=== PATIENT | male | born 1950 | race Caucasian/White ===

== ENCOUNTER 2017-09-18 03:07 | Emergency (ER) | payer OTHER ==
[2017-09-18] MEDS ORDERED: hydrOXYzine HCL TAB* 25 MG PO ONE (03:29)
[2017-09-18] MEDS ORDERED: Famotidine TAB* 20 MG PO ONE (03:30)
[2017-09-18] MEDS ORDERED: predniSONE TAB* 20 MG PO ONE (03:31)
--- NOTE | 2017-09-18 04:35 | ED ---
Ct Lynch SooYoung, scribed for Day Phillips MD on 09/18/17 at 0327 . Skin Complaint - HPI Summary HPI Summary: A 67 y/o M presents to ED with c/o diffuse rash first noticed approx. 1800 yesterday. Rash is pruritic and erythematous. Pt has been recently hunting. Pt denies new exposure to clothes, soaps, foods. PMHx: HTN, shingles. - History of Current Complaint Chief Complaint: EDRashSkinAbscess Time Seen by Provider: 09/18/17 03:21 Stated Complaint: RASH Hx Obtained From: Patient, Medical Records Onset/Duration: Started Hours Ago, Still Present Timing: Constant Onset Severity: Mild Current Severity: Mild Pain Intensity: 0 Pain Scale Used: 0-10 Numeric Skin Location: Diffuse Character: Pruritus, Redness - Allergy/Home Medications Allergies/Adverse Reactions: Allergies Allergy/AdvReac Type Severity Reaction Status Date / Time No Known Allergies Allergy Verified 09/18/17 03:08 PMH/Surg Hx/FS Hx/Imm Hx Previously Healthy: No - shingles History: Reports: Hx Kidney Stones Sensory History: Denies: Hx Legally Blind Opthamlomology History: Denies: Hx Legally Blind EENT History: Denies: Hx Deafness Infectious Disease History: No Infectious Disease History: Denies: Traveled Outside the [place] in Last 30 Days - Family History Known Family History: Positive: Hypertension, Diabetes Negative: Cardiac Disease - Social History Occupation: Employed Full-time Lives: With Family Alcohol Use: Occasionally Hx Substance Use: No Hx Tobacco Use: No Review of Systems Negative: Shortness Of Breath Positive: Rash - diffuse All Other Systems Reviewed And Are Negative: Yes Physical Exam - Summary Physical Exam Summary: VITAL SIGNS: Reviewed. GENERAL: Patient is a well-developed and nourished MALE who is lying comfortable in the stretcher. Patient is not in any acute respiratory distress. HEAD AND FACE: No signs of trauma. No ecchymosis, hematomas or skull depressions. No sinus tenderness. EYES: PERRLA, EOMI x 2, no injected conjunctiva, no nystagmus. EARS: Hearing grossly intact. Ear canals and tympanic membranes are within normal limits. MOUTH: Oropharynx is within normal limits. NECK: Supple, trachea is midline, no adenopathy, no JVD, no carotid bruit, no c- spine tenderness, neck with full ROM. CHEST: Symmetric, no tenderness at palpation LUNGS: Clear to auscultation bilaterally. No wheezing or crackles. CVS: Regular rate and rhythm, S1 and S2 present, no murmurs or gallops appreciated. ABDOMEN: Soft, non-tender. No signs of distention. No rebound, no guarding, and no masses palpated. Bowel sounds are normal. EXTREMITIES: FROM in all major joints, no edema, no cyanosis, no clubbing. NEURO: Alert and oriented x 3. No acute neurological deficits. Speech is normal and follows commands. SKIN: Dry and warm. Pt has a diffuse, generalized macular papular rash. Vital Signs On Initial Exam: Initial Vitals Temp Pulse Resp BP Pulse Ox 96.6 F 61 14 138/72 96 09/18/17 03:09 09/18/17 03:09 09/18/17 03:09 09/18/17 03:09 09/18/17 03:09 Diagnostics - Vital Signs Vital Signs Temp Pulse Resp BP Pulse Ox 09/18/17 03:09 96.6 F 61 14 138/72 96 - Laboratory Lab Statement: Any lab studies that have been ordered have been reviewed, and results considered in the medical decision making process. Re-Evaluation - Re-Evaluation 1 Re-Evaluation Time: 04:28 Change: Improved Comment: Pt is feeling betters after meds. Itching has reduced, rash has reduced. Course/Dx - Course Course Of Treatment: A 67 y/o M presents to ED with c/o diffuse rash first noticed approx. 1800 yesterday. Rash is pruritic and erythematous. Pt has been recently hunting. Pt denies new exposure to clothes, soaps, foods. PMHx: HTN, shingles. Pt given Pepcid, Atarax, Deltasone in ED. Pt is feeling much improved after medications. Will D/C home. Pt is agreeable. - Diagnoses Provider Diagnoses: Urticaria Discharge - Discharge Plan Condition: Stable Disposition: HOME Prescriptions: Hydroxyzine Pamoate [Vistaril] 25 mg PO Q4HR PRN #20 cap PRN Reason: Itching predniSONE TAB* [Deltasone TAB*] 40 mg PO DAILY #10 tab Patient Education Materials: Urticaria (ED), Prednisone (By mouth), Hydroxyzine (By mouth) Referrals: Luiz RABAGO,Bettina [Primary Care Provider] - 1 Week Additional Instructions: Follow up with your primary care provider in the week. Please return to the ED if you experience new or worsening symptoms. The documentation as recorded by the Ct alonso SooYoung accurately reflects the service I personally performed and the decisions made by me, Day Phillips MD.
[2017-09-18 04:46] VITALS: BP 128/79
== END 2017-09-18 04:45 | disposition home or self-care (01) ==
LOC: ED 03:07
DX: L50.9 Urticaria, unspecified (principal)
CPT/HCPCS: 99282; A9270-GY; J7512

== ENCOUNTER 2017-09-20 00:36 | Emergency (ER) | payer MEDICARE, OTHER ==
[2017-09-20] MEDS ORDERED: methylPREDNISolone 125 MG* 2 ML VIAL IV ONE (01:01)
[2017-09-20] MEDS ORDERED: Famotidine IV* 10 MG/ML 2 ML (20 mg) IV SLOW PU ONE (01:01)
[2017-09-20] MEDS ORDERED: diPHENhydraMINE IV* 50 MG/ML 1 ml VIAL (BENADRYL) IV ONE (01:01)
[2017-09-20] MEDS ORDERED: diPHENhydraMINE PO* 25 MG PO ONE (03:34)
--- NOTE | 2017-09-20 03:53 | ED ---
Nestor Lynch Nikita, scribed for Joe Montes De Oca on 09/20/17 at 0130 . Allergic Reaction/Systemic - HPI Summary HPI Summary: This patient is a 67 year old M presenting to ED with a chief complaint of allergic reaction since waking up at 0000. Pt was seen yesterday in the ED for similar symptoms and took steroid medication yesterday. Pt woke up at midnight with increased symptoms. The patient rates the pain 0/10 in severity. Symptoms aggravated by nothing. Symptoms alleviated by nothing. Patient reports swelling on his face, hoarse voice, rashes, and angioedema. - History of Current Complaint Chief Complaint: EDAllergicReaction Time Seen by Provider: 09/20/17 01:12 Hx Obtained From: Patient Onset/Duration: Sudden Onset, Started hours ago, Still Present Timing: Constant Severity Currently: None Pain Intensity: 0 Pain Scale Used: 0-10 Numeric Character: Hives Aggravating Factor(s): Nothing Alleviating Factor(s): Nothing Associated Signs And Symptoms: Positive: Other: - Patient reports swelling on his face, hoarse voice, rashes, and angioedema. - Allergies/Home Medications Allergies/Adverse Reactions: Allergies Allergy/AdvReac Type Severity Reaction Status Date / Time No Known Allergies Allergy Verified 09/20/17 01:28 PMH/Surg Hx/FS Hx/Imm Hx Endocrine/Hematology History: Reports: Hx Diabetes - borderline DM Cardiovascular History: Denies: Hx Coronary Artery Disease, Hx Hypertension History: Reports: Hx Kidney Stones Sensory History: Denies: Hx Legally Blind, Hx Deafness Opthamlomology History: Denies: Hx Legally Blind Infectious Disease History: No Infectious Disease History: Denies: Traveled Outside the [place] in Last 30 Days - Family History Known Family History: Positive: Hypertension, Diabetes Negative: Cardiac Disease - Social History Alcohol Use: Occasionally Hx Substance Use: No Substance Use Type: Reports: None Hx Tobacco Use: No Smoking Status (MU): Never Smoked Tobacco Review of Systems Positive: Other - swelling of his face, hoarse voice Positive: Rash, Other - angiodema All Other Systems Reviewed And Are Negative: Yes Physical Exam Triage Information Reviewed: Yes Vital Signs On Initial Exam: Initial Vitals Temp Pulse Resp BP Pulse Ox 99 F 65 18 147/115 98 09/20/17 00:39 09/20/17 00:39 09/20/17 00:39 09/20/17 00:39 09/20/17 00:39 Vital Signs Reviewed: Yes Appearance: Positive: Well-Appearing, No Pain Distress Skin: Positive: Warm, Dry, Other - diffuse maculopapular rash Head/Face: Positive: Normal Head/Face Inspection Eyes: Positive: EOMI, TONYA ENT: Positive: Normal ENT inspection Neck: Positive: Supple, Nontender Respiratory/Lung Sounds: Positive: Clear to Auscultation, Breath Sounds Present Cardiovascular: Positive: RRR, Pulses are Symmetrical in both Upper and Lower Extremities Abdomen Description: Positive: Nontender, Soft Bowel Sounds: Positive: Present Musculoskeletal: Positive: Normal, Strength/ROM Intact Neurological: Positive: Normal, Sensory/Motor Intact, Alert, Oriented to Person Place, Time Diagnostics - Vital Signs Vital Signs Temp Pulse Resp BP Pulse Ox 09/20/17 00:39 99 F 65 18 147/115 98 - Laboratory Lab Statement: Any lab studies that have been ordered have been reviewed, and results considered in the medical decision making process. Allergic Reaction Course/Dx - Course Assessment/Plan: This patient is a 67 year old M presenting to ED with a chief complaint of allergic reaction since waking up at 0000. Patient reports swelling on his face, hoarse voice, rashes, and angioedema. In the ED course, pt was given benadryl, pepcid, and solu-medrol. Pt will be discharged with instructions to follow up with PCP. - Diagnoses Differential Diagnosis/HQI/PQRI: Positive: Other - allergic reaction Provider Diagnoses: Allergic reaction Discharge - Discharge Plan Condition: Stable Disposition: HOME Patient Education Materials: Allergies (ED) Referrals: Bettina Dee MD [Primary Care Provider] - 3 Days The documentation as recorded by the Nestor alonso Nikita accurately reflects the service I personally performed and the decisions made by , Joe Montes De Oca.
[2017-09-20 04:31] VITALS: BP 142/67
== END 2017-09-20 04:20 | disposition home or self-care (01) ==
LOC: ED 00:36
DX: T78.40XA Allergy, unspecified, initial encounter (principal); X58.XXXA Exposure to other specified factors, initial encounter
CPT/HCPCS: 96374; 96375; 99284; A9270-GY; J1200; J2930

== ENCOUNTER 2017-09-20 23:59 | Emergency (ER) | payer MEDICARE ==
[2017-09-21] MEDS ORDERED: EPINEPHrine AMP 1 MG/ML SUBCUT ONE (02:01)
[2017-09-21] MEDS ORDERED: methylPREDNISolone 125 MG* 2 ML VIAL IV ONE (02:01)
[2017-09-21] MEDS ORDERED: Famotidine IV* 10 MG/ML 2 ML (20 mg) IV SLOW PU ONE (02:03)
[2017-09-21] MEDS ORDERED: diPHENhydraMINE IV* 50 MG/ML 1 ml VIAL (BENADRYL) IV ONE (02:03)
[2017-09-21 03:15] LABS: Hematocrit 44 % (42-52); Hemoglobin 14.8 g/dl (14.0-18.0); Mean Corpuscular HGB Conc 34 g/dl (31-36); Mean Corpuscular Hemoglobin 30 pg (27-31); Mean Corpuscular Volume 90 fL (80-94); Mean Platelet Volume 11 um3 (7.4-10.4); Red Blood Count 4.88 10^6/ul (4.0-5.4); Red Cell Distribution Width 14 % (10.5-15); White Blood Count 10.9 10^3/ul (3.5-10.8)
[2017-09-21 03:27] LABS: Albumin 3.9 g/dL (3.2-5.2); BUN/Creatinine Ratio 25.8 (8-20); Calcium 9.1 mg/dL (8.6-10.3); EGFR African American 78.1 (>60); EGFR Non-African American 60.8 (>60); Globulin 2.7 g/dL (2-4); Total Protein 6.6 g/dL (6.4-8.9)
[2017-09-21 04:19] LABS: Potassium 3.6 mmol/L (3.5-5.0)
[2017-09-21 04:53] VITALS: BP 130/71
--- NOTE | 2017-09-21 06:47 | ED ---
Melquiades Lynch Gabriel, scribed for Joe Montes De Oca on 09/21/17 at 0203 . Skin Complaint - HPI Summary HPI Summary: This patient is a 67 year old M presenting to [facility] accompanied by with a chief complaint of hives since 4 days prior that faired up tonight. Patient denies cp and sob. - History of Current Complaint Chief Complaint: EDAllergicReaction Time Seen by Provider: 09/21/17 01:54 Stated Complaint: ITCHY AND SWOLLEN ALL OVER Hx Obtained From: Patient Onset/Duration: Still Present Timing: Constant Pain Intensity: 0 Pain Scale Used: 0-10 Numeric Character: Hives, Redness, Raised - Allergy/Home Medications Allergies/Adverse Reactions: Allergies Allergy/AdvReac Type Severity Reaction Status Date / Time No Known Allergies Allergy Verified 09/20/17 01:28 PMH/Surg Hx/FS Hx/Imm Hx Previously Healthy: No Endocrine/Hematology History: Reports: Hx Diabetes - borderline DM Cardiovascular History: Denies: Hx Coronary Artery Disease, Hx Hypertension History: Reports: Hx Kidney Stones Sensory History: Denies: Hx Legally Blind, Hx Deafness Opthamlomology History: Denies: Hx Legally Blind Infectious Disease History: No Infectious Disease History: Denies: Traveled Outside the [place] in Last 30 Days - Family History Known Family History: Positive: Hypertension, Diabetes Negative: Cardiac Disease - Social History Alcohol Use: Occasionally Hx Substance Use: No Substance Use Type: Reports: None Hx Tobacco Use: No Smoking Status (MU): Never Smoked Tobacco Review of Systems Negative: Chest Pain Negative: Shortness Of Breath Positive: Rash Negative: Slurred Speech All Other Systems Reviewed And Are Negative: Yes Physical Exam - Summary Physical Exam Summary: Appearance: Well appearing, no pain distress Skin: warm, dry, reflects adequate perfusion Diffuse erythematic maculopapular rash Head/face: normal Eyes: EOMI, TONYA ENT: normal Neck: supple, non-tender Respiratory: CTA, breath sounds present Cardiovascular: RRR, pulses symmetrical Abdomen: non-tender, soft Bowel: present Musculoskeletal: normal, strength/ROM intact Neuro: normal, sensory motor intact, A&Ox3 Triage Information Reviewed: Yes Vital Signs On Initial Exam: Initial Vitals Temp Pulse Resp BP Pulse Ox 98.0 F 69 16 135/66 100 09/21/17 00:06 09/21/17 00:06 09/21/17 00:06 09/21/17 00:06 09/21/17 00:06 Vital Signs Reviewed: Yes Diagnostics - Vital Signs Vital Signs Temp Pulse Resp BP Pulse Ox 09/21/17 00:06 98.0 F 69 16 135/66 100 - Laboratory Lab Results: Lab Results 09/21/17 09/21/17 09/21/17 Range/Units 02:50 02:50 02:50 WBC 10.9 H (3.5-10.8) 10^3/ul RBC 4.88 (4.0-5.4) 10^6/ul Hgb 14.8 (14.0-18.0) g/dl Hct 44 (42-52) % MCV 90 (80-94) fL MCH 30 (27-31) pg MCHC 34 (31-36) g/dl RDW 14 (10.5-15) % Plt Count 195 (150-450) 10^3/ul MPV 11 H (7.4-10.4) um3 Neut % (Auto) 79.6 (38-83) % Lymph % (Auto) 16.4 L (25-47) % Garfield % (Auto) 3.4 (1-9) % Eos % (Auto) 0.5 (0-6) % Baso % (Auto) 0.1 (0-2) % Absolute Neuts (auto) 8.7 H (1.5-7.7) 10^3/ul Absolute Lymphs (auto) 1.8 (1.0-4.8) 10^3/ul Absolute Monos (auto) 0.4 (0-0.8) 10^3/ul Absolute Eos (auto) 0.1 (0-0.6) 10^3/ul Absolute Basos (auto) 0 (0-0.2) 10^3/ul Absolute Nucleated RBC 0 10^3/ul Nucleated RBC % 0 INR (Anticoag Therapy) 0.98 (0.89-1.11) Sodium 137 (133-145) mmol/L Potassium 3.6 (3.5-5.0) mmol/L Chloride 104 (101-111) mmol/L Carbon Dioxide 24 (22-32) mmol/L Anion Gap 9 (2-11) mmol/L BUN 31 H (6-24) mg/dL Creatinine 1.20 H (0.67-1.17) mg/dL Est GFR ( Amer) 78.1 (>60) Est GFR (Non-Af Amer) 60.8 (>60) BUN/Creatinine Ratio 25.8 H (8-20) Glucose 121 H (70-100) mg/dL Calcium 9.1 (8.6-10.3) mg/dL Total Bilirubin 1.00 (0.2-1.0) mg/dL AST 22 (13-39) U/L ALT 16 (7-52) U/L Alkaline Phosphatase 52 (34-104) U/L Total Protein 6.6 (6.4-8.9) g/dL Albumin 3.9 (3.2-5.2) g/dL Globulin 2.7 (2-4) g/dL Albumin/Globulin Ratio 1.4 (1-3) Result Diagrams: 09/21/17 02:50 09/21/17 02:50 Lab Statement: Any lab studies that have been ordered have been reviewed, and results considered in the medical decision making process. Course/Dx - Course Assessment/Plan: This patient is a 67 year old M presenting to [facility] accompanied by with a chief complaint of hives since 4 days prior that faired up tonight. In the ED course the patient was given Diphenhydramine, Epinephrine, Famotidine, and Methylprednisolone. Patient will be discharged with prescription for Diphenhydramine and Methylprednisolone follow up from PCP. Patient was diagnosed with an allergic reaction. The patient is agreeable with this plan. - Differential Diagnoses - Skin Complaint Differential Diagnoses: Allergic Reaction, Eczema, Urticaria - Diagnoses Provider Diagnoses: Allergic reaction Discharge - Discharge Plan Condition: Stable Disposition: HOME Prescriptions: Diphenhydramine HCl [Benadryl Allergy 25 MG CAP] 25 mg PO TID #20 cap MDD 3 Methylprednisolone [Medrol Dosepak 4 MG*] 0 mg PO .SEE SYDNI INSTRUCTION #1 tab Patient Education Materials: Diphenhydramine (By mouth), Methylprednisolone ( By mouth), Urticaria (ED) Referrals: No Primary Care Phys,NOPCP [Primary Care Provider] - Additional Instructions: Return to emergency department for new or worsening symptoms. The documentation as recorded by the Melquiades alonso Gabriel accurately reflects the service I personally performed and the decisions made by , Joe Montes De Oca.
== END 2017-09-21 04:52 | disposition home or self-care (01) ==
LOC: ED 23:59
DX: T78.40XA Allergy, unspecified, initial encounter (principal); X58.XXXA Exposure to other specified factors, initial encounter
CPT/HCPCS: 36415; 80053; 85025; 85610; 96374; 96375; 99282; J0171; J1200; J2930

== ENCOUNTER 2018-09-03 05:58 | Day surgery (SDC) | payer MEDICARE, OTHER ==
[2018-09-03] MEDS ORDERED: NS 0.9% 1000 ML* 1,000 ML IV ONE (06:21)
--- NOTE | 2018-09-03 06:33 | ED ---
GI/ HPI - HPI Summary HPI Summary: Presents with left-sided flank pain which started Wednesday. He reports this was mild at first and he thought he just pulled a muscle. Pain has progressed and he noted dark urine on Wednesday along with a weaker stream than usual. He denies urinary urgency, frequency, dysuria, hematuria, fever, chest pain or abdominal pain. He does admit when his left flank pain shoots up to about 9 or 10, he develops chills, sweats and nausea. He has a history of kidney stone and this feels similar. He was seen by Dr. Qeuzada in the past - had stent placed on Rt and took medications to break up the stone. He admits he has passed some tiny stones in the past year on his own without difficulty. He has not had anything for pain prior to arrival and declines pain medication at this time. Last ate 18:30 last night, last drank glass of water at 4:30am today HTN, hyperlipidemia and DM - all well controlled on PO meds only - no h/o NV No pulm issues No blood d/o's Has tolerated anesthesia well in the past - History of Current Complaint Chief Complaint: EDFlankPain Time Seen by Provider: 09/03/18 06:10 Stated Complaint: FLANK PAIN Hx Obtained From: Patient, Family/Internet Marketing Strategist - Pain Intensity: 3 - Allergy/Home Medications Allergies/Adverse Reactions: Allergies Allergy/AdvReac Type Severity Reaction Status Date / Time atorvastatin Allergy Unknown Verified 12/21/17 12:50 Reaction Details PMH/Surg Hx/FS Hx/Imm Hx Previously Healthy: Yes Endocrine/Hematology History: Reports: Hx Diabetes - borderline DM - takes metformin Denies: Hx Anticoagulant Therapy, Hx Blood Disorders, Hx Anemia, Hx Unexplained Bleeding, Hx Coagulopothy Cardiovascular History: Reports: Hx Hypercholesterolemia - on statin - well controlled, Hx Hypertension - well controlled on med Denies: Hx Atrial Fibrillation, Hx Coronary Artery Disease, Hx Myocardial Infarction Respiratory History: Denies: Hx Asthma, Hx Chronic Obstructive Pulmonary Disease (COPD), Hx Sleep Apnea GI History: Reports: Hx Gastroesophageal Reflux Disease - takes PPI Denies: Hx Gastrointestinal Bleed, Hx Ulcer History: Reports: Hx Kidney Stones - Follows sean/ [facility] Denies: Hx Acute Renal Failure, Hx Chronic Renal Failure, Hx Kidney Infection Sensory History: Reports: Hx Contacts or Glasses Denies: Hx Legally Blind, Hx Deafness Opthamlomology History: Reports: Hx Contacts or Glasses Denies: Hx Legally Blind Infectious Disease History: No Infectious Disease History: Denies: Traveled Outside the [place] in Last 30 Days - Family History Known Family History: Positive: Hypertension, Diabetes Negative: Cardiac Disease - Social History 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 Negative: Fever, Fatigue Cardiovascular: Negative Respiratory: Negative Positive: Abdominal Pain - Lt flank and upper side/abdomen, Nausea - w/ pain only. Negative: Vomiting, Diarrhea Positive: see HPI Musculoskeletal: Negative Skin: Negative Neurological: Negative Psychological: Normal All Other Systems Reviewed And Are Negative: Yes Physical Exam Triage Information Reviewed: Yes Vital Signs On Initial Exam: Initial Vitals Temp Pulse Resp BP Pulse Ox 98 F 66 20 149/96 100 09/03/18 06:00 09/03/18 06:00 09/03/18 06:00 09/03/18 06:00 09/03/18 06:00 Vital Signs Reviewed: Yes Appearance: Positive: Well-Appearing, No Pain Distress, Well-Nourished Skin: Positive: Warm, Skin Color Reflects Adequate Perfusion, Dry Head/Face: Positive: Normal Head/Face Inspection Eyes: Positive: Normal, EOMI, Conjunctiva Clear - anicteric sclera ENT: Positive: Normal ENT inspection, Hearing grossly normal, Pharynx normal - mucosa moist Respiratory/Lung Sounds: Positive: Clear to Auscultation, Breath Sounds Present. Negative: Rales, Rhonchi, Wheezes Cardiovascular: Positive: Normal, RRR, S1, S2. Negative: Murmur, Rub, Leg Edema Left, Leg Edema Right Abdomen Description: Positive: No Organomegaly, Soft, CVA Tenderness (L) - mild , Other: - mild Lt side ab TTP - no rebounding. Negative: CVA Tenderness (R), Distended, Guarding Bowel Sounds: Positive: Present Male Genital Exam: Positive: Other - deferred - no reported pain/swelling Musculoskeletal: Positive: Normal, Strength/ROM Intact Neurological: Positive: Normal, Sensory/Motor Intact, Alert, Oriented to Person Place, Time, CN Intact II-III Psychiatric: Positive: Normal Diagnostics - Vital Signs Vital Signs Temp Pulse Resp BP Pulse Ox 09/03/18 06:00 98 F 66 20 149/96 100 - Laboratory Result Diagrams: 09/03/18 06:44 09/03/18 06:44 Lab Statement: Any lab studies that have been ordered have been reviewed, and results considered in the medical decision making process. Re-Evaluation - Re-Evaluation First Eval Change: Worse - Pt's pain returned and he is now requesting pain medication - ordered 4mg moprhine Second Eval Change: Improved - mild improvement but still in pain, writhing - will order 4mg more of morphine - no toradol d/t poor renal fxn at this time GIGU Course/Dx - Course Course Of Treatment: Patient's left flank pain appears to be caused by a "5 mm calcified stone located in the proximal left ureter. This causes moderate left- sided hydronephrosis with perinephric stranding" (CT report). WBC's WNL, no fever, + blood on U/A. Glucose well controlled aat 118, no glucosuria. BUN and Creat area elevated from norm - could be d/t obstruction/dehydration. IVF ordered. Discussed case with Dr. Quezada who agrees to admit to OR for stent today. Patient will be kept NPO, 2 g of Rocephin ordered IV as well as pain control. Will refrain from using Toradol due to patient's worsening renal function however he is stable at time of transition of care. His pain is better controlled as well as his blood pressure with 8 mg of morphine total. Discharge medications were prescribed and sent to his pharmacy per Dr. Quezada's request. D/c was reviewed w/ pt prior to 2nd dose of 4mg morphine and will call to review as well since she left to go to work but has to return to roll picker pt should he be d/c'd today. Dr. Quezada's plan is to perform lithotripsy in 3-4 days PRN. Pt aware of plan. - Diagnoses Provider Diagnoses: Left ureteral calculus, Renal function test abnormal Discharge - Sign-Out/Discharge Documenting (check all that apply): Patient Departure - Discharge Plan Condition: Stable Disposition: ADMITTED TO [facility] Prescriptions: Ondansetron TAB* [Zofran 4 MG Tab*] 8 mg PO Q8HR PRN #15 tab PRN Reason: Nausea oxyCODONE/Acetamin 5/325 MG* [Percocet 5/325 TAB*] 1 tab PO Q6H PRN #15 tab MDD 4 PRN Reason: Pain Patient Education Materials: Kidney Stones (ED), How to Strain Your Urine (ED) , Ureteral Stent Placement (DC) Referrals: Noe Quezada MD [Medical Doctor] - Additional Instructions: Follow discharge instructions provided by Dr. Quezada today. Take medication as directed here - roll picker at [facility] today *If your symptoms worsen or you develop fever, inability to urinate, etc, call Dr. Quezada or return to the ED - Billing Disposition and Condition Condition: STABLE Disposition: Admitted to [facility]
[2018-09-03 06:56] LABS: ABS Basophils 0.1 10^3/ul (0-0.2); ABS Eosinophils 0.2 10^3/ul (0-0.6); ABS Lymphocytes 1.5 10^3/ul (1.0-4.8); ABS Monocytes 0.9 10^3/ul (0-0.8); ABS Neutrophils 7.6 10^3/ul (1.5-7.7); ABS Nucleated RBC 0 10^3/ul; Hematocrit 40 % (42-52); Hemoglobin 13.4 g/dl (14.0-18.0); Lymphocyte % 14.3 % (25-47); Mean Corpuscular HGB Conc 34 g/dl (31-36); Mean Corpuscular Hemoglobin 31 pg (27-31); Mean Corpuscular Volume 91 fL (80-94); Mean Platelet Volume 10.3 fL (7.4-10.4); Nucleated Red Blood Cells % 0; Platelet Count 164 10^3/ul (150-450); Red Cell Distribution Width 14 % (10.5-15); White Blood Count 10.2 10^3/ul (3.5-10.8)
[2018-09-03] MEDS ORDERED: Ondansetron INJ* 2 MG/ML VIAL IV ONE (07:00)
[2018-09-03] MEDS ORDERED: Morphine VIAL* 4 MG/ML VIAL (1 ml vial) IV ONE ×2 (07:00→07:40)
[2018-09-03 07:04] LABS: Urine Appearance Cloudy; Urine Blood 3+ (Negative); Urine Color Yellow; Urine Ketones Negative (Negative); Urine Protein Negative (Negative); Urine Red Blood Cell 3+(>10/hpf) (Absent); Urine Specific Gravity 1.013 (1.010-1.030); Urine Urobilinogen Negative (Negative); Urine White Blood Cell Trace(0-5/hpf) (Absent)
[2018-09-03 07:06] LABS: INR 0.94 (0.77-1.02)
[2018-09-03] MEDS ORDERED: cefTRIAXone(*) 2 GM in NS 0.9% 100 ML* 100 ML IVPB ONE (07:42)
[2018-09-03] MEDS ORDERED: Iohexol 180 (CONTRAST) 10 ML SDV IV ONE (08:12)
[2018-09-03] MEDS ORDERED: Famotidine IV* 10 MG/ML 2 ML (20 mg) IV ONE (08:49)
[2018-09-03] MEDS ORDERED: HYDROmorphone INJ1* 1 MG/ML SYRINGE IV PRN (08:50)
[2018-09-03] MEDS ORDERED: Acetaminophen TAB* 325 MG PO PRN (08:50)
[2018-09-03] MEDS ORDERED: Naloxone* 0.4 MG/ML 1 ML VIAL IV PRN (08:50)
[2018-09-03] MEDS ORDERED: DiMENhydriNATE IV* 50 MG/ML VIAL IV PUSH PRN (08:50)
[2018-09-03] MEDS ORDERED: oxyCODONE TAB* 5 MG TAB PO PRN (08:50)
[2018-09-03] MEDS ORDERED: Famotidine IV* 10 MG/ML 2 ML (20 mg) ONE (08:51)
[2018-09-03] MEDS ORDERED: Midazolam* 1 MG/ML 5 ML VIAL (5 MG) ONE (09:28)
[2018-09-03] MEDS ORDERED: fentaNYL* 50 MCG/ML 2 ML VIAL (100 MCG VIAL) ONE (09:35)
[2018-09-03] MEDS ORDERED: Dexamethasone IV* 4 MG/ML 1 ML (4 MG) ONE (09:43)
[2018-09-03] MEDS ORDERED: Propofol* 10 MG/ML 20 ML BTL IV PUSH ONE (09:43)
[2018-09-03] MEDS ORDERED: Ondansetron INJ* 2 MG/ML VIAL ONE (09:43)
[2018-09-03] MEDS ORDERED: Ketorolac INJ* 30 MG/ML 1 ML VIAL ONE (09:43)
[2018-09-03] MEDS ORDERED: Tamsulosin CAP* 0.4 MG ONE (10:54)
[2018-09-03 11:06] VITALS: BP 141/80
--- NOTE | 2018-09-03 14:37 | HP ---
CC: Dr. Pineda Chapman.* HISTORY AND PHYSICAL: DATE OF ADMISSION: 09/03/18. ADMITTING DIAGNOSES: 1. Left hydronephrosis. 2. Acute renal injury. 3. Obstructing calculus left proximal ureter. PLANNED PROCEDURE: Planned procedure today is urgent left stent insertion (to be followed in the near future by lithotripsy). SURGEON: Dr. Quezada. ADMITTING HISTORY AND PHYSICAL: Amilcar Hernández is a 68-year-old diabetic with a history of recurrent renal calculi. He presented to the emergency room with a 3 to 4-day history of left flank pain and nausea. He was noted to have a 5-mm obstructing calculus in the left proximal ureter and evidence of acute kidney injury with creatinine increased to 2.03. He continues to have significant pain and is now being brought in for urgent left stent insertion to be followed in the near future by lithotripsy. PAST MEDICAL HISTORY: Significant for: 1. Diabetes mellitus. 2. Hypertension. 3. High cholesterol. 4. Renal calculi. MEDICATIONS ON ADMISSION: 1. Metformin 500 mg a day. 2. Pravastatin 40 mg a day. 3. Tenormin 25 mg a day. 4. Vitamins and supplements. ALLERGIES AND INTOLERANCES: ATORVASTATIN. 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 He denies any chest pain or shortness of breath. PHYSICAL EXAMINATION GENERAL: Reveals a pleasant middle-aged gentleman. VITAL SIGNS: Blood pressure is 127/69, pulse 63 per minute regular, temperature 98.2, oxygen saturation 98% on room air. LUNGS: Clear bilaterally. CARDIOVASCULAR EXAM: Regular rate and rhythm. S1, S2. ABDOMEN: Soft with left flank tenderness. DIAGNOSTIC STUDIES/LAB DATA: I reviewed the imaging studies which show 5 to 6 mm calculus in the left proximal ureter with left hydronephrosis and perinephric stranding. Review of labs reveals a white count of 10.2, hemoglobin and hematocrit are normal at 13.4 and 40 respectively with a platelet count of 164. INR is normal at 0.94. Urinalysis shows 3+ blood with absent bacteria. BUN and creatinine are 36 and 2.03. I discussed the situation in detail with Mr. Hernández. The plan is for urgent left stent insertion, most likely to be followed in the near future by lithotripsy. [id number]/[facility] #: [id number] TOMMY
--- NOTE | 2018-09-03 16:51 | OP ---
CC: Dr. Pineda Chapman * DATE OF OPERATION: 09/03/18 - [facility] DATE OF : 54 SURGEON: Noe Quezada MD ANESTHESIOLOGIST: Dr. Cruz. ANESTHESIA: General. PRE-OP DIAGNOSES: 1. Left hydronephrosis. 2. Acute kidney injury. 3. Obstructing calculus left proximal ureter. POST-OP DIAGNOSES: 1. Left hydronephrosis. 2. Acute kidney injury. 3. Obstructing calculus left proximal ureter. OPERATIVE PROCEDURE: Cystoscopy, left retrograde pyelogram, left ureteral calculus manipulation and left stent insertion. INDICATIONS: Amilcar Hernández is a 68-year-old gentleman who presented with an obstructing left proximal ureteral calculus and a creatinine of 2.0. He is being brought in for urgent left stent insertion to be followed in the near future by lithotripsy. OPERATIVE FINDINGS: 1. Moderately enlarged prostate. 2. Obstructing calculus left proximal ureter. STENT USED: 6-Armenian stent left ureter. DESCRIPTION OF PROCEDURE: After induction of general anesthesia, the patient was placed in dorsal lithotomy position. Sequential compression devices were in place and functioning. Initial cystoscopy revealed a normal-appearing urethra and a moderately enlarged prostate, especially the median lobe. The bladder was examined. 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 A guidewire was introduced into the left ureter. Initially, there was resistance at the level of the obstructing calculus of the proximal left ureter. After some initial manipulation, the calculus was manipulated proximally and retrograde pyelogram revealed left hydronephrosis. A 6-Armenian stent was then introduced and positioned under fluoroscopy with good proximal and distal positioning obtained. The plan is to obtain a postoperative x-ray to assess the final location of the calculus and determine the timing of lithotripsy. [id number]/[facility] #: [id number] MTDD
== END 2018-09-03 10:50 | disposition home or self-care (01) ==
LOC: ED 05:58 → OR 10:50
PROVIDERS: ATTEND Urology
DX: N13.2 Hydronephrosis with renal and ureteral calculous obstruction (principal); R10.32 Left lower quadrant pain; N40.0 Benign prostatic hyperplasia without lower urinary tract symptoms; E11.9 Type 2 diabetes mellitus without complications; Z79.84 Long term (current) use of oral hypoglycemic drugs; I10 Essential (primary) hypertension; E78.00 Pure hypercholesterolemia, unspecified
CPT/HCPCS: 36415; 74018; 74176; 74420; 80053; 81003; 81015; 83605; 83690; 83735; 85025; 85610; 85730; 86140; 87086; 96374; 96375; 99283; C1876; J0696; J1100; J1885; J2250; J2270; J2405; J2704; J3010

== ENCOUNTER 2018-09-12 11:28 | Day surgery (SDC) | payer MEDICARE ==
[~2018-09-12 11:28] MED LIST: Buffered Lidocaine 0.9% SYRIN* 5 ML/SYR SYRINGE INTRADERM ONE
[2018-09-12] MEDS ORDERED: Buffered Lidocaine 0.9% SYRIN* 5 ML/SYR SYRINGE ONE (12:59)
[2018-09-12] MEDS ORDERED: cefTRIAXone(*) 2 GM ADDV.VIAL IVPB ONE (12:59)
[2018-09-12] MEDS ORDERED: fentaNYL* 50 MCG/ML 2 ML VIAL (100 MCG VIAL) ONE (14:32)
[2018-09-12] MEDS ORDERED: Midazolam* 1 MG/ML 2 ML VIAL (2 MG) ONE ×2 (14:32→15:21)
[2018-09-12] MEDS ORDERED: Propofol* 10 MG/ML 20 ML BTL IV PUSH ONE (15:21)
[2018-09-12] MEDS ORDERED: Dexamethasone IV* 4 MG/ML 1 ML (4 MG) ONE (15:21)
[2018-09-12] MEDS ORDERED: Furosemide IV* 10 MG/ML 2 ML VIAL (20 MG) ONE (15:21)
[2018-09-12] MEDS ORDERED: Famotidine IV* 10 MG/ML 2 ML (20 mg) ONE (15:21)
[2018-09-12] MEDS ORDERED: diPHENhydraMINE IV* 50 MG/ML 1 ml VIAL (BENADRYL) IV PRN (15:37)
[2018-09-12] MEDS ORDERED: HYDROcodone/ACETAMIN 5-325 MG* 1 TAB PO PRN (15:37)
[2018-09-12] MEDS ORDERED: DiMENhydriNATE IV* 50 MG/ML VIAL IV PUSH PRN (15:37)
[2018-09-12] MEDS ORDERED: fentaNYL* 50 MCG/ML 2 ML VIAL (100 MCG VIAL) IV PRN (15:37)
[2018-09-12] MEDS ORDERED: Naloxone* 0.4 MG/ML 1 ML VIAL IV PRN (15:37)
[2018-09-12] MEDS ORDERED: PROCHLORPERAZINE INJ 5 MG/ML 2 ML VIAL IV PRN (15:37)
[2018-09-12] MEDS ORDERED: Ondansetron INJ* 2 MG/ML VIAL IV PRN (15:37)
[2018-09-12] MEDS ORDERED: Acetaminophen TAB* 325 MG PO PRN (15:37)
[2018-09-12 16:33] VITALS: BP 149/81
--- NOTE | 2018-09-13 11:10 | OP ---
CC: Pineda Chapman MD; Dr. Noe Quezada OPERATIVE REPORT: DATE OF OPERATION: 09/12/18 DATE OF : 54 SURGEON: Noe Quezada MD ANESTHESIOLOGIST: Dr. Louise. ANESTHESIA: General. PRE-OP DIAGNOSIS: Left ureteral calculus and left hydronephrosis. POST-OP DIAGNOSIS: Left ureteral calculus and left hydronephrosis. OPERATIVE PROCEDURE: Cystoscopy, left stent removal, left retrograde pyelogram, left ureteroscopy, a nd stone extraction. INDICATIONS: Amilcar Hernández is a 68-year-old gentleman who had undergone urgent left stent insert ion for obstructing left ureteral calculus and acute kidney injury. He is now being brought in for d efinitive treatment of the calculus. OPERATIVE FINDINGS: Two stones left proximal ureter (appearance consistent with uric acid stones). COMPLICATIONS: None. POSTOPERATIVE CONDITION: Stable. DESCRIPTION OF PROCEDURE: After induction of general anesthesia, the patient was placed on the litho tripsy table in a supine position. The original plan had been to do shock-wave lithotripsy; however, I could not visualize the stones on fluoroscopy. At this point, a decision was made to go ahead and proceed with ureteroscopy. The patient was placed in dorsal lithotomy position and cystoscopy was p erformed. The previously placed stent was removed. Left retrograde pyelogram revealed mild fullness of the left collecting system. A 6-Kuwaiti semi-rigid ureteroscope was introduced and advanced under direct vision. The entire distal, mid and proximal ureter were visualized. At the junction of the mid and proximal ureter, there were 2 calculi noted with an appearance consistent with uric acid calc yoel. Using a 3-pronged grasper, these were separately engaged and removed and sent for analysis. At the end of the procedure, there were no other remaining stones and the contrast from the retrograde was seen to be draining from the ureter, so I elected not to replace a left stent. The patient dalton ated the procedure satisfactorily and was transferred back to the recovery area in stable condition. [id number]/[facility] #: [id number]
== END 2018-09-12 17:30 | disposition home or self-care (01) ==
LOC: OR 11:28
PROVIDERS: ATTEND Urology
DX: N13.2 Hydronephrosis with renal and ureteral calculous obstruction (principal); E11.9 Type 2 diabetes mellitus without complications; Z79.84 Long term (current) use of oral hypoglycemic drugs; E78.00 Pure hypercholesterolemia, unspecified; I10 Essential (primary) hypertension
CPT/HCPCS: 74018; 82365; 88300; J0696; J1100; J1940; J2250; J2704; J3010